=== PATIENT | male | born 1980 ===

== ENCOUNTER 2018-07-14 06:07 | Day surgery (SDC) | payer SELFPAY ==
[2018-07-08 16:43] VITALS: BMI 21.2
[2018-07-14 06:37] VITALS: RESP 18
[2018-07-14] MEDS ORDERED: Lactated Ringer's 1,000 ML IV ONE ×2 (07:04→09:31)
[2018-07-14] MEDS ORDERED: Propofol 10 mg/ml Inj (20 ML) ONE ×2 (07:22→08:45)
[2018-07-14] MEDS ORDERED: Midazolam 2 MG/2 ML VIAL ONE (07:23)
[2018-07-14] MEDS ORDERED: Phenylephrine 10 mg/ml Inj ONE (07:26)
--- NOTE | 2018-07-14 07:28 | CP.PCM.PN ---
Subjective - Date & Time of Evaluation Date of Evaluation: 07/14/18 Time of Evaluation: 07:22 - Subjective Subjective: 37 yo male with no pmhx seen and evaluated in [facility] for bilateral ingrown hallucal toenails that has been present for over three months. Patient states the toes are very painful and keep getting infected. Admits to being NPO. Objective - Vital Signs/Intake and Output Vital Signs (last 24 hours): Temp Pulse Resp BP Pulse Ox 98.4 F 97 H 18 110/71 97 07/14/18 06:35 07/14/18 06:39 07/14/18 06:35 07/14/18 06:35 07/14/18 06:35 - Constitutional Appears: Well, Non-toxic, No Acute Distress - Head Exam Head Exam: ATRAUMATIC, NORMOCEPHALIC - Extremities Exam Additional comments: Bilateral lower extremity exam: Vascular: DP/PT 2/4, CFT <3 secs x 10, TG warm to warm, edema and erythema noted bilateral hallucal nail borders derm: erythema and edema noted on bilateral nail borders, no active purulent drainage, no malodor ortho: pain with palpation on bilateral hallucal toenails. neuro: protective sensation intact via ipswich 4/4 b/l Assessment and Plan - Assessment and Plan (Free Text) Assessment: 37 yo male seen and evaluated in [facility] preoperatively for bilateral hallucal ingrown toe nails. Plan: Pt was seen and examined in [facility] Pt NPO status was confirmed All pre-op testing and clearance in chart Pt has exhausted all conservative treatment at this time and is opting for surgical intervention Pt was explained procedure and post-operative course All pt's questions were answered to satisfaction No guarantees were made Pt understands all risks, benefits and complications of procedure Pt will follow-up in podiatry clinic within 1 week of surgery
--- NOTE | 2018-07-14 07:33 | CP.SDSHP ---
Same Day Surgery H & P - History Proposed Procedure: Bilateral hallucal ingrown toenails medial and lateral border, winograd procedure Pre-Op Diagnosis: Bilateral medial and lateral ingrown toenail of the halluces - Allergies Allergies: Allergies latex Allergy (Verified 07/08/18 16:43) ITCHING pineapple Allergy (Verified 07/14/18 06:44) SWELLING - Physical Exam Vital Signs: Vital Signs 07/14/18 07/14/18 06:35 06:39 Temperature 98.4 F Pulse Rate 97 H 97 H Respiratory 18 Rate Blood Pressure 110/71 O2 Sat by Pulse 97 Oximetry - Date & Time Date: 07/14/18 Time: 13:42 Short Stay Discharge - Short Stay Discharge Admitting Diagnosis/Reason for Visit: L60.0 Disposition: HOME/ ROUTINE Referrals: Reyes Landin MD [Primary Care Provider] - Additional Instructions (Diet, Activity): -Patient in good/stable condition for discharge home -Pt to resume medications per medical reconciliation -Resume regular diet -Please keep dressing clean, dry, & intact to surgical site -Use plastic bag over bandage for showering -Wear post op shoe at all times when ambulating -Call clinic if you see signs of infection (redness, swelling, malodor) -Please make an appointment to see Dr. Jorge in office/clinic within 1 week for post-op check Progress Note/Discharge Note with Instructions: - Patient evaluated bedside in recovery s/p bilateral medial and lateral halluces winograd procedure - After surgical procedure patient in NAD - (+) Void, (+) Appetite - Capillary refill time <3s and NVS intact. - Patient denies complaints at this time. - Post operative instructions and plan of care explained to patient at length. - Patient. acknowledges verbal understanding. - Patient stable for DC per podiatric surgery
[2018-07-14] MEDS ORDERED: ceFAZolin 2 GM in Sodium Chloride 0.9% 100 ML IVPB ONE (07:34)
[2018-07-14] MEDS ORDERED: Bupivacaine 0.5% Inj(30mL) IJ ONE (07:34)
[2018-07-14] MEDS ORDERED: Lidocaine 1% Inj (20ml) IJ ONE ×2 (07:34→09:30)
[2018-07-14] MEDS ORDERED: Bacitracin Ointment 30 GM TUBE ONE (07:35)
[2018-07-14] MEDS ORDERED: Bupivacaine HCl 0.25% PF (30 ml) Inj ONE (07:35)
[2018-07-14] MEDS ORDERED: Lidocaine 2% w Epi 1:100,000 Inj IJ ONE (07:36)
[2018-07-14] MEDS ORDERED: Lidocaine 1% Inj (20ml) ONE (07:36)
[2018-07-14] MEDS ORDERED: Sodium Chloride 0.9% 1,000 ML IV SCH (07:45)
[2018-07-14] MEDS ORDERED: Bupivacaine 0.25% Inj(30mL) IJ ONE (08:35)
[2018-07-14] MEDS ORDERED: Bacitracin OINT 15GM TOP ONE (09:36)
[2018-07-14] MEDS ORDERED: Esmolol 100 mg/10ml Inj IV ONE (09:42)
--- NOTE | 2018-07-14 09:59 | PCM.SURG1 ---
Surgeon's Initial Post Op Note - Surgeon's Notes Surgeon: Dr. Jorge Specimen Technician: Татьяна Garcia PGY1, Reina Tate PGY2 Type of Anesthesia: IV Sedation, Local (14cc 0.25% marcaine (5cc right, 9cc left), 2cc 1% lidocaine) Anesthesia Administered By: Dr. Woo Pre-Operative Diagnosis: 1) Onychocryptosis, right hallux medial and lateral borders. 2) Onychocryptosis, left hallux medial and lateral borders Operative Findings: See operative report. m: 4-0 nylon Post-Operative Diagnosis: same Operation Performed: 1) right hallux winograd matrixectomy, medial and lateral borders. 2) left hallux winograf matrixectomy, medial and lateral borders Specimen/Specimens Removed: right and left hallux nail + matrix Estimated Blood Loss: EBL {In ML}: 1 Blood Products Given: N/A Drains Used: No Drains Post-Op Condition: Good Date of Surgery/Procedure: 07/14/18 Time of Surgery/Procedure: 10:01
[2018-07-14] MEDS ORDERED: Oxycodone/Acetaminophen 5/325 mg Tab PO PRN ×2 (10:02)
[2018-07-14] MEDS ORDERED: Oxycodone/Acetaminophen 5/325 mg Tab PO ONE (12:20)
[2018-07-14 14:43] VITALS: BP 117/63; PULSE 100; O2SAT 98
[2018-07-14 15:29] VITALS: TEMP 99.7
--- NOTE | 2018-07-14 22:33 | OP ---
PROCEDURE DATE: 07/14/2018 SURGEON: Darrell Jorge DPM [employer]: Carolyn Tate, PGY-2, Roberto Garcia, PGY-1 ANESTHESIOLOGIST: Dr. Woo. ANESTHESIA: IV sedation with local, 14 mL of 0.25% Marcaine. PREOPERATIVE DIAGNOSES: 1. Onychocryptosis, right hallux medial and lateral borders. 2. Onychocryptosis, left hallux medial and lateral borders. POSTOPERATIVE DIAGNOSES: 1. Onychocryptosis, right hallux medial and lateral borders. 2. Onychocryptosis, left hallux medial and lateral borders. NAME OF PROCEDURE: 1. Right hallux Winograd matrixectomy, medial and lateral borders. 2. Left hallux Winograd matrixectomy, medial and lateral borders. INDICATIONS: The patient is a 37-year-old male with the above-mentioned diagnoses. The patient has been treated by Dr. Jorge in the Podiatry Clinic on an outpatient basis where he has exhausted multiple forms of conservative treatment. The patient requires surgical intervention at this time. The patient signed the consent after careful explanation of risks, benefits, alternatives, and complications to procedure, and wishes to proceed. No guarantees were given nor implied. N.p.o. was confirmed prior to bringing the patient to the operating room. PREPARATION: The patient was brought into the operating room and placed on the operating room table in supine position. A time-out was performed for identification of the correct the patient and procedure. A well-padded pneumatic ankle tourniquet was placed onto both right and left lower extremities in a supramalleolar position. After the induction of IV sedation, a total of 5 mL of 0.25% Marcaine was administered in a hallux block fashion to the right lower extremity and 9 mL of 0.25% Marcaine was administered in a hallux block fashion to the left lower extremity. Once local anesthesia was achieved, both right and left lower extremities were prepped and draped in normal sterile manner. An Esmarch was used to exsanguinate the both limbs. The tourniquet was inflated to 250 mmHg and the procedure began. DESCRIPTION OF PROCEDURE: PROCEDURE #1: Right hallux Winograd matrixectomy in medial and lateral borders. Attention was directed to the medial border of the right hallux where it was noted to have incurvated nail. Using a 15 blade, an elliptical incision was made down to level of bone along its medial margin. All underlying soft tissue including nail bed and matrix were excised and passed from the field. A curette was then used to ensure that all nail matrix was removed. Following that a rongeur was used to excise any residual soft tissue. The wound was then flushed with copious amounts of sterile saline. Attention was directed to the right hallux lateral border where utilizing a 15 blade an elliptical excision was created along the lateral border. All underlying tissue including nail bed and matrix were excised and passed from the field. A curette and rongeur were then used to ensure that all nail matrix is removed from the excision site. The wound was then flushed with copious amounts of sterile saline. Skin was reapproximated using a 4-0 nylon. PROCEDURE #2: Left hallux Winograd matrixectomy in medial and lateral borders. Attention was directed to the medial aspect of the left hallucal nail where it was noted to be incurvated in nature. Utilizing a 15 blade an elliptical incision was made excising redundant tissue as well as the incurvated nail bed. All underlying tissue including nail bed and matrix were excised and passed from the field. A curette and rongeur were then used to ensure that all nail matrix is removed from the excision site. Attention was then directed to the lateral border of the left hallucal nail where it was noted to be incurvated in nature. Using a fresh 15 blade, an elliptical incision was made down to the level of bone. All underlying tissue including nail bed and matrix were excised and passed from the field. A curette and rongeur were then used to ensure that all nail matrix is removed from the excision site. The wounds were then flushed with copious amounts of sterile saline and skin was re-approximated using 4-0 nylon. Postoperative bandages included bacitracin, Adaptic and a dry sterile dressing. POSTOPERATIVE CONDITION: The patient tolerated the procedure and anesthesia well and was escorted to the recovery room with vital signs stable and neurovascular status intact to both lower extremities. The patient will be full weightbearing in surgical shoe and will follow up with Dr. Jorge in the Podiatry Clinic on an outpatient basis. Carolyn Tate DPM Darrell Jorge DPM [facility] # [id number]
== END 2018-07-14 16:30 | disposition still patient (30) ==
LOC: H.OPSURG 06:07
PROVIDERS: ATTEND Podiatrist Foot & Ankle Surgery
DX: M20.12 Hallux valgus (acquired), left foot (principal); L60.0 Ingrowing nail; Z21 Asymptomatic human immunodeficiency virus [HIV] infection status; M20.11 Hallux valgus (acquired), right foot
CPT/HCPCS: 11750; 88304; J0690; J2001; J2175; J2250; J2270; J2370; J2405; J2704; J3010; J7030; J7120

== ENCOUNTER 2018-07-14 16:36 | Observation (INO) | payer SELFPAY ==
[2018-07-14 16:36] VITALS: BMI 21.2
[2018-07-14] MEDS ORDERED: Sodium Chloride 0.9% 1,000 ML IV STA (17:06)
[2018-07-14] MEDS ORDERED: ceFAZolin 2 GM in Sodium Chloride 0.9% 100 ML IVPB ONE (17:07)
[2018-07-14 17:32] LABS: VENOUS BLOOD GAS BASE EXCESS 1.5 mmol/L (0.0-2.0); VENOUS BLOOD GAS PCO2 49 mmHg (40-60); VENOUS BLOOD GAS PO2 28 mm/Hg (30-55); VENOUS BLOOD PH 7.36 (7.32-7.43)
[2018-07-14 17:45] LABS: BASO % 0.5 % (0.0-2.0); EOS # 0.1 K/uL (0.0-0.7); EOS % 1.5 % (0.0-4.0); HEMOGLOBIN 12.3 g/dL (12.0-18.0); LYMPH # 0.9 K/uL (1.0-4.3); LYMPH % 21.4 % (20.0-40.0); MEAN CELL VOLUME 92.3 fl (80.0-94.0); MEAN CORPUSCULAR HEMOGLOBIN 31.1 pg (27.0-31.0); MEAN CORPUSCULAR HGB CONC 33.8 g/dL (33.0-37.0); MEAN PLATELET VOLUME 8.5 fl (7.2-11.7); MONO # 0.3 K/uL (0.0-0.8); MONO % 7.4 % (0.0-10.0); NEUT % 69.2 % (50.0-75.0); NRBC % 0.2 % (0.0-0.0); RBC 3.94 Mil/uL (4.40-5.90); RED CELL DISTRIBUTION WIDTH 14.1 % (11.5-14.5); WHITE BLOOD COUNT 4.3 K/uL (4.8-10.8)
[2018-07-14 17:47] LABS: SQUAMOUS EPITHIAL < 1 /hpf (0-5); URINE BILIRUBIN NEGATIVE (NEGATIVE); URINE BLOOD NEGATIVE (NEGATIVE); URINE CLARITY CLEAR (Clear); URINE COLOR STRAW (YELLOW); URINE GLUCOSE (UA) NEG (NEGATIVE); URINE LEUKOCYTE ESTERASE NEG Leu/uL (Negative); URINE PROTEIN NEGATIVE (NEGATIVE); URINE UROBILINOGEN 0.2-1.0 mg/dL (0.2-1.0)
--- NOTE | 2018-07-14 17:56 | ED PDOC ---
HPI: General Adult Time Seen by Provider: 07/14/18 16:47 Chief Complaint (Nursing): Fever History Per: Patient Additional Complaint(s): Pt. states today he had ingrown toenails operated on by Dr. Jorge. States yesterday he developed cough, congestion, and fever. As per his partner pt. had a temperature of 100.3. Further reports after the surgery fever increased and he was transferred from [facility] for further evaluation. Of note, pt. has a hx of HIV and is compliant with meds. Last viral load and CD4 was done last month which was normal. Denies chest pain, SOB, bodyaches, rash, recent travel, sick contacts. Past Medical History Reviewed: Historical Data, Nursing Documentation, Vital Signs Vital Signs: Last Vital Signs Temp 101.1 F H 07/14/18 16:44 Pulse 97 H 07/14/18 16:44 Resp 20 07/14/18 16:44 BP 122/69 07/14/18 16:44 Pulse Ox 97 07/14/18 16:44 - Medical History PMH: HIV Denies: Chronic Kidney Disease - Family History Family History: States: No Known Family Hx - Home Medications Home Medications: Ambulatory Orders Medication Instructions Recorded Elviteg/Gina/Emtric/Tenofo Dis 1 tab PO DAILY 07/08/18 [Stribild] Cephalexin [cephalexin] 500 mg PO BID 07/14/18 Hydrocodone/Acetaminophen 1 tab PO Q6 PRN 07/14/18 [Hydrocodone-Acetamin 5-325 mg] - Allergies Allergies/Adverse Reactions: Allergies Allergy/AdvReac Type Severity Reaction Status Date / Time latex Allergy ITCHING Verified 07/14/18 16:40 pineapple Allergy SWELLING Verified 07/14/18 16:40 Review of Systems ROS Statement: Except As Marked, All Systems Reviewed And Found Negative Constitutional: Positive for: Fever ENT: Positive for: Nose Congestion Respiratory: Positive for: Cough Physical Exam - Physical Exam Appears: Positive for: Well, Non-toxic, No Acute Distress Skin: Positive for: Normal Color, Warm. Negative for: Rash Eye Exam: Positive for: Normal appearance, EOMI, PERRL ENT: Positive for: Normal ENT Inspection Neck: Positive for: Normal, Painless ROM, Supple Cardiovascular/Chest: Positive for: Regular Rate, Rhythm Respiratory: Positive for: Normal Breath Sounds Gastrointestinal/Abdominal: Positive for: Soft. Negative for: Tenderness Extremity: Positive for: Normal ROM. Negative for: Calf Tenderness (b/l) Neurologic/Psych: Positive for: Alert, Oriented (x3) - Laboratory Results Result Diagrams: 07/14/18 17:15 07/14/18 17:15 Lab Results: pO2 28 mm/Hg (30-55) L 07/14/18 17:14 VBG pH 7.36 (7.32-7.43) 07/14/18 17:14 VBG pCO2 49 mmHg (40-60) 07/14/18 17:14 VBG HCO3 25.1 mmol/L 07/14/18 17:14 VBG Total CO2 29.2 mmol/L (22-28) H 07/14/18 17:14 VBG O2 Sat (Calc) 62.2 % (40-65) 07/14/18 17:14 VBG Base Excess 1.5 mmol/L (0.0-2.0) 07/14/18 17:14 VBG Potassium 3.8 mmol/L (3.6-5.2) 07/14/18 17:14 Sodium 132.0 mmol/L (132-148) 07/14/18 17:14 Chloride 104.0 mmol/L (98-107) 07/14/18 17:14 Glucose 92 mg/dL (75-110) 07/14/18 17:14 Lactate 1.4 mmol/L (0.7-2.1) 07/14/18 17:14 FiO2 21.0 % 07/14/18 17:14 - ECG O2 Sat by Pulse Oximetry: 97 - Radiology X-Ray: Interpreted by Wi (CXR) X-Ray Interpretation: No Acute Disease - Progress ED Course And Treament: Labs, VBG, motrin 600mg PO, IV NS bolus, CXR ordered. Case d/w Dr. Finley, podiatry resident, who requests pt. to be admitted and be given Ancef 2gm IV then at 0400 pt. is to get ancef 1gm IV q8h. Tamiflu PO, ancef 2gm IV ordered. CPK low End tital CO2 37. Pt. not c/o bodyaches or muscle aches. Pt. with cough and congestion that began yesterday and tested positive for Flu A today. No tachycardia observed while in ED. Fever resolved. Malignant h yperthermia unlikely. Case d/w Dr. Davison and arrangements made for 23 hour observation. Disposition - Clinical Impression Clinical Impression: Influenza - Patient ED Disposition Is Patient to be Admitted: Yes - Disposition Disposition Time: 19:00 Condition: FAIR Forms: [employer] ([place])
[2018-07-14 18:00] LABS: ALB/GLOB RATIO 1.1 (1.0-2.1); ALBUMIN 3.4 g/dL (3.5-5.0); ALT/SGPT 35 U/L (21-72); AST/SGOT 29 U/L (17-59); BLOOD UREA NITROGEN 13 mg/dl (9-20); CALCIUM 8.2 mg/dL (8.4-10.2); GFR NON-AFRICAN AMERICAN > 60
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
[2018-07-15] MEDS: Sodium Chloride 0.9% 1,000 ML IV SCH ×2 (00:38→16:52)
[2018-07-15] MEDS: ceFAZolin 1 GM in Sodium Chloride 0.9% 100 ML IVPB SCH ×3 (01:45→16:51)
[2018-07-15 06:28] LABS: BASO % 0.3 % (0.0-2.0); EOS # 0.1 K/uL (0.0-0.7); EOS % 2.2 % (0.0-4.0); HEMOGLOBIN 12.2 g/dL (12.0-18.0); LYMPH # 0.8 K/uL (1.0-4.3); LYMPH % 18.7 % (20.0-40.0); MEAN CELL VOLUME 92.4 fl (80.0-94.0); MEAN CORPUSCULAR HEMOGLOBIN 31.8 pg (27.0-31.0); MEAN CORPUSCULAR HGB CONC 34.5 g/dL (33.0-37.0); MEAN PLATELET VOLUME 8.9 fl (7.2-11.7); MONO # 0.3 K/uL (0.0-0.8); MONO % 7.9 % (0.0-10.0); NEUT # 3.1 K/uL (1.8-7.0); NEUT % 70.9 % (50.0-75.0); NRBC % 0.1 % (0.0-0.0); RBC 3.82 Mil/uL (4.40-5.90); RED CELL DISTRIBUTION WIDTH 14.1 % (11.5-14.5); WHITE BLOOD COUNT 4.3 K/uL (4.8-10.8)
[2018-07-15] MEDS ORDERED: Enoxaparin 40 mg Syringe SC SCH (09:00)
[2018-07-15] MEDS ORDERED: Pantoprazole 40 mg EC Tab PO SCH (09:00)
--- NOTE | 2018-07-15 09:11 | RAD ---
Date of service: 07/14/2018 HISTORY: fever COMPARISON: No prior. TECHNIQUE: Chest PA and lateral FINDINGS: LUNGS: No active pulmonary disease. PLEURA: No significant pleural effusion identified. No pneumothorax apparent. CARDIOVASCULAR: No aortic atherosclerotic calcification present. Normal cardiac size. No pulmonary vascular congestion. OSSEOUS STRUCTURES: No significant abnormalities. VISUALIZED UPPER ABDOMEN: Normal. OTHER FINDINGS: None. IMPRESSION: No acute cardiopulmonary disease appreciated.
--- NOTE | 2018-07-15 11:17 | CP.PCM.DIS ---
<MonaeNery - Last Filed: 07/15/18 11:57> Provider - Provider Date of Admission: 07/14/18 20:21 Attending physician: Lewis Manzano MD Primary care physician: Dr. Landin Time Spent in preparation of Discharge (in minutes): 30 Hospital Course - Lab Results Lab Results: Most Recent Lab Values WBC 4.3 K/uL (4.8-10.8) L 07/15/18 05:30 RBC 3.82 Mil/uL (4.40-5.90) L 07/15/18 05:30 Hgb 12.2 g/dL (12.0-18.0) 07/15/18 05:30 Hct 35.3 % (35.0-51.0) 07/15/18 05:30 MCV 92.4 fl (80.0-94.0) 07/15/18 05:30 MCH 31.8 pg (27.0-31.0) H 07/15/18 05:30 MCHC 34.5 g/dL (33.0-37.0) 07/15/18 05:30 RDW 14.1 % (11.5-14.5) 07/15/18 05:30 Plt Count 142 K/uL (130-400) 07/15/18 05:30 MPV 8.9 fl (7.2-11.7) 07/15/18 05:30 Neut % (Auto) 70.9 % (50.0-75.0) 07/15/18 05:30 Lymph % (Auto) 18.7 % (20.0-40.0) L 07/15/18 05:30 [place] % (Auto) 7.9 % (0.0-10.0) 07/15/18 05:30 Eos % (Auto) 2.2 % (0.0-4.0) 07/15/18 05:30 Baso % (Auto) 0.3 % (0.0-2.0) 07/15/18 05:30 Neut # (Auto) 3.1 K/uL (1.8-7.0) 07/15/18 05:30 Lymph # (Auto) 0.8 K/uL (1.0-4.3) L 07/15/18 05:30 [place] # (Auto) 0.3 K/uL (0.0-0.8) 07/15/18 05:30 Eos # (Auto) 0.1 K/uL (0.0-0.7) 07/15/18 05:30 Baso # (Auto) 0.0 K/uL (0.0-0.2) 07/15/18 05:30 pO2 28 mm/Hg (30-55) L 07/14/18 17:14 VBG pH 7.36 (7.32-7.43) 07/14/18 17:14 VBG pCO2 49 mmHg (40-60) 07/14/18 17:14 VBG HCO3 25.1 mmol/L 07/14/18 17:14 VBG Total CO2 29.2 mmol/L (22-28) H 07/14/18 17:14 VBG O2 Sat (Calc) 62.2 % (40-65) 07/14/18 17:14 VBG Base Excess 1.5 mmol/L (0.0-2.0) 07/14/18 17:14 VBG Potassium 3.8 mmol/L (3.6-5.2) 07/14/18 17:14 Sodium 132.0 mmol/L (132-148) 07/14/18 17:14 Chloride 104.0 mmol/L (98-107) 07/14/18 17:14 Glucose 92 mg/dL (75-110) 07/14/18 17:14 Lactate 1.4 mmol/L (0.7-2.1) 07/14/18 17:14 FiO2 21.0 % 07/14/18 17:14 Sodium 135 mmol/l (132-148) 07/14/18 17:15 Potassium 4.0 MMOL/L (3.6-5.0) 07/14/18 17:15 Chloride 98 mmol/L (98-107) 07/14/18 17:15 Carbon Dioxide 26 mmol/L (22-30) 07/14/18 17:15 Anion Gap 15 (10-20) 07/14/18 17:15 BUN 13 mg/dl (9-20) 07/14/18 17:15 Creatinine 0.7 mg/dl (0.8-1.5) L 07/14/18 17:15 Est GFR ( Amer) > 60 07/14/18 17:15 Est GFR (Non-Af Amer) > 60 07/14/18 17:15 Random Glucose 95 mg/dL (75-110) 07/14/18 17:15 Calcium 8.2 mg/dL (8.4-10.2) L 07/14/18 17:15 Total Bilirubin 0.6 mg/dl (0.2-1.3) 07/14/18 17:15 AST 29 U/L (17-59) 07/14/18 17:15 ALT 35 U/L (21-72) 07/14/18 17:15 Alkaline Phosphatase 63 U/L (38-126) 07/14/18 17:15 Total Creatine Kinase 47 U/L (55-170) L 07/14/18 18:05 Total Protein 6.5 G/DL (6.3-8.2) 07/14/18 17:15 Albumin 3.4 g/dL (3.5-5.0) L D 07/14/18 17:15 Globulin 3.1 gm/dL (2.2-3.9) 07/14/18 17:15 Albumin/Globulin Ratio 1.1 (1.0-2.1) 07/14/18 17:15 Venous Blood Potassium 3.8 mmol/L (3.6-5.2) 07/14/18 17:14 Urine Color Straw (YELLOW) 07/14/18 17:15 Urine Clarity Clear (Clear) 07/14/18 17:15 Urine pH 7.0 (5.0-8.0) 07/14/18 17:15 Ur Specific [place] 1.010 (1.003-1.030) 07/14/18 17:15 Urine Protein Negative mg/dL (NEGATIVE) 07/14/18 17:15 Urine Glucose (UA) Neg mg/dL (NEGATIVE) 07/14/18 17:15 Urine Ketones Negative mg/dL (NEGATIVE) 07/14/18 17:15 Urine Blood Negative (NEGATIVE) 07/14/18 17:15 Urine Nitrate Negative (NEGATIVE) 07/14/18 17:15 Urine Bilirubin Negative (NEGATIVE) 07/14/18 17:15 Urine Urobilinogen 0.2-1.0 mg/dL (0.2-1.0) 07/14/18 17:15 Ur Leukocyte Esterase Neg [place]/uL (Negative) 07/14/18 17:15 Urine RBC (Auto) 1 /hpf (0-3) 07/14/18 17:15 Urine Microscopic WBC < 1 /hpf (0-5) 07/14/18 17:15 Ur Squamous Epith Cells < 1 /hpf (0-5) 07/14/18 17:15 Influenza Typ A,B (EIA) Pos for influenza a (NEGATIVE) H 07/14/18 17:15 - Hospital Course Hospital Course: 37 year old male patient, with PMHx of HIV, admitted for Influenza A after developing fever and testing positive post-operatively. Patient is POD#1 B/L Winograd nail procedure. During his hospital course, labs, vitals, CXR were reviewed. Patient was given ibuprofen for fever, IV fluids, and Tamiflu. Patient evaluated on day of discharge and is stable for discharge home. Patient given prescriptions for Tamiflu 75mg PO BID for 5 days and Keflex 500mg PO BID. Patient to follow up with PMD in 1-[address] Jorge on Saturday in Podiatry clinic. - Date & Time of H&P Date of H&P: 07/15/18 Time of H&P: 11:34 Discharge Exam - Head Exam Head Exam: NORMAL INSPECTION - Eye Exam Pupil Exam: NORMAL ACCOMODATION - Cardiovascular Exam Cardiovascular Exam: REGULAR RHYTHM - GI/Abdominal Exam GI & Abdominal Exam: Normal Bowel Sounds, Unremarkable - Extremities Exam Additional comments: B/L foot dressings C/D/I - Neurological Exam Neurological exam: Alert, Oriented x3 - Psychiatric Exam Psychiatric exam: Normal Affect, Normal Mood - Skin Skin Exam: Warm Discharge Plan - Discharge Medications Prescriptions: Oseltamivir Phosphate [Tamiflu] 75 mg PO BID 5 Days #10 capsule - Follow Up Plan Condition: IMPROVED Disposition: HOME/ ROUTINE Instructions: Flu, Ingrown Toenail (DC) Additional Instructions: Take medication, if symptoms worsen return to ER Follow up with PMD in 1-2 days Please keep foot dressing clean, dry, & intact to surgical site Use plastic bag over bandage for showering Wear post op shoe at all times when ambulating Call clinic if you see signs of infection (redness, swelling, malodor) Please make an appointment to see Dr. Jorge in office/clinic within 1 week for post-op check suhas medicina,regresar a ashley de emergencia si sintomas empeoran hacer lesia con burrell doctor primario en 1-2 chew mantener pie limpie, seco, e intacto usar bolsa plastica sobre bendaje mientras ducha usar zapato especial cuando ambulando Referrals: Reyes Landin MD [Family Provider] - Darrell Jorge DPM [Staff Provider] - <Riana Sosa - Last Filed: 07/15/18 18:51> Provider - Provider Date of Admission: 07/14/18 20:21 Attending physician: Lewis Manzano MD Hospital Course - Lab Results Lab Results: Micro Results 07/14/18 17:30 Blood Blood Culture - Preliminary NO GROWTH AFTER 24 HOURS 07/14/18 17:15 Blood Blood Culture - Preliminary NO GROWTH AFTER 24 HOURS Most Recent Lab Values WBC 4.3 K/uL (4.8-10.8) L 07/15/18 05:30 RBC 3.82 Mil/uL (4.40-5.90) L 07/15/18 05:30 Hgb 12.2 g/dL (12.0-18.0) 07/15/18 05:30 Hct 35.3 % (35.0-51.0) 07/15/18 05:30 MCV 92.4 fl (80.0-94.0) 07/15/18 05:30 MCH 31.8 pg (27.0-31.0) H 07/15/18 05:30 MCHC 34.5 g/dL (33.0-37.0) 07/15/18 05:30 RDW 14.1 % (11.5-14.5) 07/15/18 05:30 Plt Count 142 K/uL (130-400) 07/15/18 05:30 MPV 8.9 fl (7.2-11.7) 07/15/18 05:30 Neut % (Auto) 70.9 % (50.0-75.0) 07/15/18 05:30 Lymph % (Auto) 18.7 % (20.0-40.0) L 07/15/18 05:30 [place] % (Auto) 7.9 % (0.0-10.0) 07/15/18 05:30 Eos % (Auto) 2.2 % (0.0-4.0) 07/15/18 05:30 Baso % (Auto) 0.3 % (0.0-2.0) 07/15/18 05:30 Neut # (Auto) 3.1 K/uL (1.8-7.0) 07/15/18 05:30 Lymph # (Auto) 0.8 K/uL (1.0-4.3) L 07/15/18 05:30 [place] # (Auto) 0.3 K/uL (0.0-0.8) 07/15/18 05:30 Eos # (Auto) 0.1 K/uL (0.0-0.7) 07/15/18 05:30 Baso # (Auto) 0.0 K/uL (0.0-0.2) 07/15/18 05:30 pO2 28 mm/Hg (30-55) L 07/14/18 17:14 VBG pH 7.36 (7.32-7.43) 07/14/18 17:14 VBG pCO2 49 mmHg (40-60) 07/14/18 17:14 VBG HCO3 25.1 mmol/L 07/14/18 17:14 VBG Total CO2 29.2 mmol/L (22-28) H 07/14/18 17:14 VBG O2 Sat (Calc) 62.2 % (40-65) 07/14/18 17:14 VBG Base Excess 1.5 mmol/L (0.0-2.0) 07/14/18 17:14 VBG Potassium 3.8 mmol/L (3.6-5.2) 07/14/18 17:14 Sodium 132.0 mmol/L (132-148) 07/14/18 17:14 Chloride 104.0 mmol/L (98-107) 07/14/18 17:14 Glucose 92 mg/dL (75-110) 07/14/18 17:14 Lactate 1.4 mmol/L (0.7-2.1) 07/14/18 17:14 FiO2 21.0 % 07/14/18 17:14 Sodium 135 mmol/l (132-148) 07/14/18 17:15 Potassium 4.0 MMOL/L (3.6-5.0) 07/14/18 17:15 Chloride 98 mmol/L (98-107) 07/14/18 17:15 Carbon Dioxide 26 mmol/L (22-30) 07/14/18 17:15 Anion Gap 15 (10-20) 07/14/18 17:15 BUN 13 mg/dl (9-20) 07/14/18 17:15 Creatinine 0.7 mg/dl (0.8-1.5) L 07/14/18 17:15 Est GFR ( Amer) > 60 07/14/18 17:15 Est GFR (Non-Af Amer) > 60 07/14/18 17:15 Random Glucose 95 mg/dL (75-110) 07/14/18 17:15 Calcium 8.2 mg/dL (8.4-10.2) L 07/14/18 17:15 Total Bilirubin 0.6 mg/dl (0.2-1.3) 07/14/18 17:15 AST 29 U/L (17-59) 07/14/18 17:15 ALT 35 U/L (21-72) 07/14/18 17:15 Alkaline Phosphatase 63 U/L (38-126) 07/14/18 17:15 Total Creatine Kinase 47 U/L (55-170) L 07/14/18 18:05 Total Protein 6.5 G/DL (6.3-8.2) 07/14/18 17:15 Albumin 3.4 g/dL (3.5-5.0) L D 07/14/18 17:15 Globulin 3.1 gm/dL (2.2-3.9) 07/14/18 17:15 Albumin/Globulin Ratio 1.1 (1.0-2.1) 07/14/18 17:15 Venous Blood Potassium 3.8 mmol/L (3.6-5.2) 07/14/18 17:14 Urine Color Straw (YELLOW) 07/14/18 17:15 Urine Clarity Clear (Clear) 07/14/18 17:15 Urine pH 7.0 (5.0-8.0) 07/14/18 17:15 Ur Specific [place] 1.010 (1.003-1.030) 07/14/18 17:15 Urine Protein Negative mg/dL (NEGATIVE) 07/14/18 17:15 Urine Glucose (UA) Neg mg/dL (NEGATIVE) 07/14/18 17:15 Urine Ketones Negative mg/dL (NEGATIVE) 07/14/18 17:15 Urine Blood Negative (NEGATIVE) 07/14/18 17:15 Urine Nitrate Negative (NEGATIVE) 07/14/18 17:15 Urine Bilirubin Negative (NEGATIVE) 07/14/18 17:15 Urine Urobilinogen 0.2-1.0 mg/dL (0.2-1.0) 07/14/18 17:15 Ur Leukocyte Esterase Neg [place]/uL (Negative) 07/14/18 17:15 Urine RBC (Auto) 1 /hpf (0-3) 07/14/18 17:15 Urine Microscopic WBC < 1 /hpf (0-5) 07/14/18 17:15 Ur Squamous Epith Cells < 1 /hpf (0-5) 07/14/18 17:15 Influenza Typ A,B (EIA) Pos for influenza a (NEGATIVE) H 07/14/18 17:15 Attending/Attestation - Attestation I have personally seen and examined this patient.: Yes I have fully participated in the care of the patient.: Yes I have reviewed all pertinent clinical information, including history, physical exam and plan: Yes Notes (Text): Influenza A - started on Tamiflu - p[t feels better, fever resolved - CXR : no infiltrate - UA neg HIV +, asymptomatic CD4 count normal Viral load undetectable
[2018-07-15 15:53] VITALS: BP 101/66; PULSE 91; RESP 18; O2SAT 96
[2018-07-15 18:45] VITALS: TEMP 98.2
== END 2018-07-15 18:40 | disposition home or self-care (01) ==
LOC: H.ER 16:36 → H.ERHOLD 20:21 → H.MEDSURG1 22:30
DX: J10.1 Influenza due to other identified influenza virus with other respiratory manifestations (principal); Z21 Asymptomatic human immunodeficiency virus [HIV] infection status; L60.0 Ingrowing nail; R50.82 Postprocedural fever; Z82.71 Family history of polycystic kidney
CPT/HCPCS: 36415; 71046; 80053; 81003; 82550; 82803; 85025; 87040; 87086; 87804; 96372; 96375; 99285; G0378; J0690; J1650; J7030